=== PATIENT | female | born 1995 | race African-American/Black ===

== ENCOUNTER 2022-09-14 13:44 | Emergency (ER) | payer SELFPAY ==
[2022-09-14] MEDS ORDERED: Ondansetron ODT 4 MG TAB ONE (14:25)
[2022-09-14] MEDS ORDERED: Loperamide HCl 2 MG CAP ONE (14:26)
[2022-09-14 14:41] LABS: Bilirubin Neg (Negative); Blood, Urine 25 (Negative); Clarity Clear (Clear); Glucose, Urine (Dipstick) Normal (Negative); Ketone, Urine Negative (Negative); Leukocyte Negative (Negative); Nitrite Negative (Negative); Protein, Urine (Dipstick) 15 mg/dl (Neg-Trace); Specific Gravity, Urine 1.025 (1.005-1.030)
[2022-09-14 14:46] LABS: Pregnancy Test - Urine (BHCG) Negative (Negative)
[2022-09-14 14:47] LABS: Pregu Control Background? CLEAR/WHITE (CLR/WHITE); Pregu Control Bar Appear? YES (CONTROL BAR); Specific Gravity 1.025 (1.002-1.036)
== END 2022-09-14 15:07 | disposition home or self-care (01) ==
LOC: CSHERS 13:44
DX: R19.7 Diarrhea, unspecified (principal); R11.2 Nausea with vomiting, unspecified
CPT/HCPCS: 81003; 81025; 99284; Q0162